=== PATIENT | female | born 1990 | race Caucasian/White ===

== ENCOUNTER 2020-11-16 02:39 | Inpatient (IN) | payer BC ==
[~2020-11-16] VITALS: Ht 160 cm; Wt 92.1 kg
[~2020-11-16 02:39] MED LIST: OMNICEF 300 MG300 MG PO; VENTOLIN HFA 66.7 GM INH
[2020-11-16 03:50] LABS: HEMOGLOBIN 13.4 gm/dl (12.3-15.3); RED BLOOD COUNT 4.06 M/UL (4.00-5.10); WHITE BLOOD COUNT 14.3 K/UL (4.5-11.0)
[2020-11-17 06:28] LABS: HEMOGLOBIN 10.3 gm/dl (12.3-15.3)
[2020-11-17] MEDS ORDERED: TYLOPHEN500 MG PO (11:21)
[2020-11-17] MEDS ORDERED: DOCUSATE SODIU100 MG PO (11:21)
[2020-11-18] MEDS ORDERED: HYDROCODON-ACE1 EAC4 PO (13:50)
== END 2020-11-18 16:48 | disposition home or self-care (01) | DRG 807 ==
LOC: GENOP 02:39 → OB 03:24
PROVIDERS: Obstetrics & Gynecology; ADMIT Obstetrics & Gynecology
PROC: 10E0XZZ Delivery of Products of Conception, External Approach (ICD-10-PCS; principal; 2020-11-16)
PROC: 0KQM0ZZ Repair Perineum Muscle, Open Approach (ICD-10-PCS; 2020-11-16)
DX: O99.52 Diseases of the respiratory system complicating childbirth (principal); Z37.0 Single live birth; O70.1 Second degree perineal laceration during delivery; Z3A.40 40 weeks gestation of pregnancy; Z20.822 Contact with and (suspected) exposure to COVID-19; J45.909 Unspecified asthma, uncomplicated; Z82.49 Family history of ischemic heart disease and other diseases of the circulatory system; Z80.3 Family history of malignant neoplasm of breast; O69.81X0 Labor and delivery complicated by cord around neck, without compression, not applicable or unspecified; Z28.21 Immunization not carried out because of patient refusal
CPT/HCPCS: 36415; 36600; 51702; 81001; 82800; 85014; 85018; 85025; 87635; J2590; J7120

== ENCOUNTER → 2022-04-05 | Outpatient (CLI) | payer BC ==
[~2022-04-05] MED LIST changes: +DOCUSATE SODIU100 MG PO; +HYDROCODON-ACE1 EAC4 PO; +TYLOPHEN500 MG PO
== END ==
LOC: KOH-I 09:56
DX: R53.1 Weakness (principal); R20.2 Paresthesia of skin
CPT/HCPCS: 70551